=== PATIENT | female | born 1945 | race Caucasian/White ===

== ENCOUNTER 2019-08-28 11:07 | Outpatient (CLI) | payer MEDICARE, OTHER ==
--- NOTE | 2019-08-28 16:18 | Mammography Report ---
Reason: SCREENING MAMMOGRAM Procedure Date: 08/28/2019 Accession Number: [id number] / [id number] Procedure: MGS - Screening Mammo Dig RT CPT Code: FULL RESULT: EXAM: Screening Mammo Dig RT DATE: 08/28/2019 11:40 AM CLINICAL HISTORY: Routine screening. Personal history of treated left breast cancer status post mastectomy. No reported family history of breast cancer. TECHNIQUE: (R) - Right CC and MLO views were obtained. COMPARISON: 05/06/2014 through 04/15/2010 PARENCHYMAL PATTERN: (D) - The breasts demonstrate heterogeneously dense fibroglandular parenchyma bilaterally. FINDINGS: Right breast: There are no suspicious masses, calcifications, or areas of distortion. IMPRESSION: Negative examination. BI-RADS category 1. RECOMMENDATION: (ANNUAL) - Recommend routine annual screening mammography. BI-RADS CATEGORY: (1) - Negative. STANDARD QUALIFYING STATEMENTS: 1. This examination was reviewed with the aid of Computer-Aided Detection (CAD). 2. A negative or benign imaging report should not preclude biopsy if clinically suspicious findings are present. 3. Dense breasts may obscure an underlying neoplasm. 4. This examination was reviewed without the aid of 3D breast imaging (tomosynthesis).
== END 2019-08-28 11:08 | disposition home or self-care (01) ==
LOC: DI.S 11:07
DX: Z12.31 Encounter for screening mammogram for malignant neoplasm of breast (principal); Z85.3 Personal history of malignant neoplasm of breast; Z90.12 Acquired absence of left breast and nipple
CPT/HCPCS: 77067

== ENCOUNTER 2020-06-07 19:20 | Outpatient (CLI) | payer MEDICARE, OTHER | END 2020-06-07 23:59 | disposition critical access hospital (66) | LOC: EMS 19:20 | PROVIDERS: ATTEND Surgery | DX: R11.0 Nausea (principal); R19.8 Other specified symptoms and signs involving the digestive system and abdomen | CPT/HCPCS: A0425; A0429 ==

== ENCOUNTER 2020-06-07 19:44 | Emergency (ER) | payer MEDICARE, OTHER ==
[2020-06-07] MEDS ORDERED: ONDANSETRON 4 MG/2 ML VIAL IVP STA (19:50)
[2020-06-07] MEDS ORDERED: SODIUM CHLORIDE 0.9% 1,000 ML IV STA (19:50)
--- NOTE | 2020-06-07 19:51 | ED Physician Documentation ---
PD HPI NVD - Stated complaint Stated Complaint: Nausea/constipation - History obtained from History obtained from: Patient, EMS - Additonal information Additional information: 74-year-old woman with history of Hernandez's esophagus and C. difficile remotely. She had 2 loose stools on , 2 days ago and started some leftover vancomycin that she had for the same. Subsequent to that she stopped having bowel movements and now has mild lower abdominal pain and nausea which is her major complaint. Review of Systems Constitutional: denies: Fever, Chills Cardiac: reports: Reviewed and negative Respiratory: reports: Reviewed and negative GI: reports: Abdominal Pain (mild), Nausea, Vomiting, Constipation, Diarrhea (gone) PD PAST MEDICAL HISTORY - Past Medical History Cardiovascular: High cholesterol GI: GERD, C.difficile, Other - Past Surgical History Past Surgical History: Yes HEENT: Cataracts - Present Medications Home Medications: Ambulatory Orders Medication Instructions Recorded Confirmed Omeprazole [PriLOSEC] 20 mg PO DAILY 01/13/15 01/13/15 Ondansetron Odt [Zofran] 4 mg TL Q6H PRN #10 tablet 06/07/20 - Allergies Allergies/Adverse Reactions: Allergies Allergy/AdvReac Type Severity Reaction Status Date / Time ampicillin Allergy Rash Verified 06/07/20 19:51 cephalexin monohydrate * Allergy Rash Verified 06/07/20 19:51 [From Keflex] lactose AdvReac Unknown Verified 06/07/20 19:51 metronidazole [From Flagyl] AdvReac Unknown Verified 06/07/20 19:51 - Social History Does the pt smoke?: No Smoking Status: Never smoker Does the pt drink ETOH?: Yes Does the pt have substance abuse?: No PD ED PE NORMAL - Vitals Vital signs reviewed: Yes - General General: Alert and oriented X 3, No acute distress - Abdomen Abdomen: Normal bowel sounds, Soft, Non tender - Rectal Rectal: Other (Small firm brown fecal impaction, enema placed during exam. Harriet Trevino RN present and chaperoning) - Derm Derm: Normal color, Warm and dry, No rash - Extremities Extremities: No edema, No calf tenderness / cord - Neuro Neuro: Alert and oriented X 3, Normal speech Results - Vitals Vitals: Vital Signs - 24 hr 06/07/20 06/07/20 06/07/20 19:51 19:54 21:15 Temperature 37.0 C Heart Rate 94 94 88 Respiratory 18 18 16 Rate Blood Pressure 184/79 H 184/79 H 132/106 H O2 Saturation 100 100 100 Oxygen O2 Source Room air - Labs Labs: Laboratory Tests 06/07/20 06/07/20 20:51 20:51 WBC 8.7 RBC 4.94 Hgb 14.3 Hct 44.3 MCV 89.7 MCH 28.9 MCHC 32.3 RDW 14.2 Plt Count 227 MPV 10.6 Neut # (Auto) 5.9 Lymph # (Auto) 1.9 [place] # (Auto) 0.8 Eos # (Auto) 0.1 Baso # (Auto) 0.1 Absolute Nucleated RBC 0.00 Nucleated RBC % 0.0 Sodium 139 Potassium 4.9 Chloride 110 Carbon Dioxide 21 Anion Gap 8.0 BUN 13 Creatinine 1.0 Estimated GFR (MDRD) 54 L Glucose 100 Calcium 9.4 Total Bilirubin 1.4 H AST 34 ALT 13 Alkaline Phosphatase 91 Total Protein 7.2 Albumin 4.1 Globulin 3.1 Albumin/Globulin Ratio 1.3 Lipase 34 PD MEDICAL DECISION MAKING - ED course ED course: 74-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 On examination here she had a fecal impaction and was vomiting. She rec eived some Zofran and was disimpacted with excellent relief of her symptoms. On reexamination she had normal to slightly hyperactive bowel tones with still no tenderness and passed a p.o. challenge. Departure - Departure Disposition: 01 Home, Self Care Clinical Impression: Fecal impaction Vomiting Qualifiers: Vomiting type: unspecified Vomiting Intractability: non-intractable Nausea presence: with nausea Qualified Code(s): R11.2 - Nausea with vomiting, unspecified Condition: Good Record reviewed to determine appropriate education?: Yes Instructions: ED Nausea Vomiting, ED Impaction Fecal Treated Prescriptions: Ondansetron Odt [Zofran] 4 mg TL Q6H PRN #10 tablet PRN Reason: Nausea / Vomiting Comments: Drink plenty of fluids, no more vancomycin. Return or see your doctor if the diarrhea recurs. Return if worse.
[2020-06-07] MEDS: ONDANSETRON ODT 4 MG TABLET TL STA ×2 (20:14→22:03)
[2020-06-07 20:56] LABS: BASOPHILS # (AUTO) 0.1 10^3/uL (0.0-0.1); BASOPHILS % (AUTO) 0.7 %; EOSINOPHILS # (AUTO) 0.1 10^3/uL (0.0-0.7); EOSINOPHILS % (AUTO) 0.6 %; HGB - HEMOGLOBIN 14.3 g/dL (12.0-16.0); LYMPHOCYTES # (AUTO) 1.9 10^3/uL (1.5-3.5); LYMPHOCYTES % (AUTO) 21.9 %; MEAN CORPUSCULAR HEMOGLOBIN 28.9 pg (27.0-31.0); MEAN CORPUSCULAR HGB CONC 32.3 g/dL (32.0-36.0); MEAN CORPUSCULAR VOLUME 89.7 fL (81.0-99.0); MEAN PLATELET VOLUME 10.6 fL (7.9-10.8); MONOCYTES # (AUTO) 0.8 10^3/uL (0.0-1.0); MONOCYTES % (AUTO) 8.7 %; NEUTROPHILS # (AUTO) 5.9 10^3/uL (1.5-6.6); NEUTROPHILS % (AUTO) 67.8 %; PLT - PLATELET COUNT 227 10^3/uL (130-450); RED BLOOD COUNT 4.94 10^6/uL (4.20-5.40); RED CELL DISTRIBUTION WIDTH 14.2 % (12.0-15.0); WHITE BLOOD COUNT 8.7 x10^3/uL (4.8-10.8)
[2020-06-07 21:08] LABS: ALBUMIN 4.1 g/dL (3.2-5.5); ALBUMIN/GLOBULIN RATIO 1.3 (1.0-2.2); BILIRUBIN,TOTAL 1.4 mg/dL (0.2-1.0); CALCIUM 9.4 mg/dL (8.5-10.3); TOTAL PROTEIN 7.2 g/dL (6.7-8.2)
[2020-06-07] MEDS ORDERED: ONDANSETRON ODT 4 MG Prepack 2 TL STA (21:53)
[2020-06-07 22:24] VITALS: BP 164/71
== END 2020-06-07 22:26 | disposition home or self-care (01) ==
LOC: EDUNIT# → ED 19:44
DX: K56.41 Fecal impaction (principal); R11.2 Nausea with vomiting, unspecified; A04.71 Enterocolitis due to Clostridium difficile, recurrent
CPT/HCPCS: 36415; 80053; 83690; 85025; 96360; 99283; 99284; Q0162